=== PATIENT | male | born 1980 | race Caucasian/White ===

== ENCOUNTER → 2024-04-15 12:50 | Outpatient (REF) | payer BC, SELFPAY | LOC: HWRAD 12:50 | PROVIDERS: ATTENDING PHYSICIAN Family Medicine | DX: M25.561 Pain in right knee (principal); M25.562 Pain in left knee | CPT/HCPCS: 73564 ==

== ENCOUNTER 2024-06-17 19:03 | Outpatient (RCR) | payer BC, SELFPAY | END 2024-06-17 23:59 | disposition home or self-care (01) | LOC: RPT 19:03 | PROVIDERS: ATTENDING PHYSICIAN Family Medicine | DX: M25.561 Pain in right knee (principal); M25.562 Pain in left knee; M79.671 Pain in right foot; M79.672 Pain in left foot | CPT/HCPCS: 97110; 97162; 97535 ==

== ENCOUNTER 2024-07-03 18:59 | Outpatient (RCR) | payer OTHER, SELFPAY | END 2024-07-04 07:30 | disposition home or self-care (01) | LOC: RPT 18:59 | PROVIDERS: ATTENDING PHYSICIAN Family Medicine | DX: M25.561 Pain in right knee (principal); M25.562 Pain in left knee; M79.671 Pain in right foot; M79.672 Pain in left foot; Z73.6 Limitation of activities due to disability | CPT/HCPCS: 97110; 97530; 97535 ==